=== PATIENT | male | born 1950 | race Caucasian/White ===

== ENCOUNTER 2021-08-09 11:52 | Inpatient (IN) | payer MEDICARE, OTHER ==
[~2021-08-09] VITALS: Ht 172.7 cm; Wt 125.0 kg
[~2021-08-09 11:52] MED LIST: AUGMENTIN 875-1 EACH PO
[2021-08-09 12:49] LABS: BASOPHIL 0.3 % (0-2); EOSINOPHIL 0.3 % (0-7); HCT 43.6 % (42.0-52.0); HGB 15.5 g/dl (13.2-18.0); LYMPHOCYTE 10.1 % (15-48); MCH 33.4 pg (25.0-31.0); MCHC 35.6 g/dL (32.0-36.0); MPV 9.6 fL (6.0-9.5); PLT 207 K/uL (150-400); RBC 4.64 M/uL (4.70-6.00); RDW 12.6 % (11.5-14.0); WBC 3.1 K/uL (4.0-10.5)
[2021-08-09 12:56] LABS: INR 1.16 (0.9-1.2); PROTHROMBIN TIME 14.2 SECONDS (11.8-13.4); PTT 32.2 SECONDS (24.4-34.7)
[2021-08-09 13:09] LABS: ALBUMIN 3.9 g/dL (3.4-5.0); BILIRUBIN - TOTAL 2.2 mg/dL (0.2-1.0); BUN/CREAT RATIO (CALC) 23.3 RATIO; CREATININE 1.16 mg/dL (0.67-1.17); GLOBULIN (CALCULATION) 3.5 g/dL; MAGNESIUM 1.7 mg/dL (1.8-2.4); POTASSIUM 3.1 mmol/L (3.5-5.1); TOTAL PROTEIN 7.4 g/dL (6.4-8.2)
[2021-08-09 13:13] LABS: LACTIC ACID 3.4 mmol/L (0.4-1.9)
[2021-08-09 13:27] LABS: BAND 15 % (0-10); LYMPHOCYTE(M) 14 % (15-48); METAMYELOCYTE 1; MONOCYTE(M) 2 % (0-12); NEUTROPHILS(M) 67 % (41-80); NRBC 0; PLATELET ESTIMATE NORMAL; PLATELET MORPHOLOGY NORMAL; TOTAL CELL COUNT 100; VARIANT LYMPHOCYTE 1
[2021-08-09 14:24] LABS: BILIRUBIN NEGATIVE (NEGATIVE); BLOOD 2+ Ery/uL (NEGATIVE); CLARITY HAZY (CLEAR); COLOR RED (YELLOW); GLUCOSE (U) NORMAL (NORMAL); LEUKOCYTES TRACE Leu/uL (NEGATIVE); NITRITE NEGATIVE (NEGATIVE); PROTEIN NEGATIVE (NEGATIVE); SPECIFIC GRAVITY <=1.005 (1.001-1.030); UROBILINOGEN 0.2 mg/dL (0.2-1.0)
[2021-08-09 14:28] LABS: BACTERIA TRACE; URINARY RBC TNTC
--- NOTE | 2021-08-09 16:59 | NUR ---
RECEIVED FROM ER VIA STRETCHER. ORIENTED TO ROOM ASSESSMENT COMPLETED
[2021-08-09] MEDS ORDERED: MELOXICAM15 MG PO (17:09)
[2021-08-09] MEDS ORDERED: TOPROL XL 50 MG50 MG PO (17:12)
[2021-08-09] MEDS ORDERED: LISINOPRIL-HCTZ PO (17:12)
[2021-08-09] MEDS ORDERED: NORVASC5 MG PO (17:12)
[2021-08-09] MEDS ORDERED: VASCULERA630 MG PO (17:13)
[2021-08-09] MEDS ORDERED: ASPIRIN325 MG PO (17:14)
[2021-08-10 06:15] LABS: BASOPHIL 0.3 % (0-2); EOSINOPHIL 0.1 % (0-7); HCT 39.4 % (42.0-52.0); HGB 13.9 g/dl (13.2-18.0); LYMPHOCYTE 2.7 % (15-48); MCHC 35.3 g/dL (32.0-36.0); MCV 96.3 fL (78.0-100.0); MONOCYTE 1.7 % (0-12); MPV 9.9 fL (6.0-9.5); NRBC 0; PLT 165 K/uL (150-400); RBC 4.09 M/uL (4.70-6.00); RDW 13.2 % (11.5-14.0)
[2021-08-10 06:30] LABS: NEUTROPHIL 94.2 % (41-80); WBC 12.6 K/uL (4.0-10.5)
[2021-08-10 06:45] LABS: BUN/CREAT RATIO (CALC) 22.3 RATIO; CREATININE 1.21 mg/dL (0.67-1.17); FT4 (FREE T4) 1.2 ng/dL (0.76-1.46); MAGNESIUM 2.1 mg/dL (1.8-2.4); POTASSIUM 3.7 mmol/L (3.5-5.1)
[2021-08-11 06:09] LABS: BASOPHIL 0.3 % (0-2); EOSINOPHIL 0.3 % (0-7); HCT 39.1 % (42.0-52.0); HGB 13.8 g/dl (13.2-18.0); LYMPHOCYTE 5.1 % (15-48); MCH 33.6 pg (25.0-31.0); MCHC 35.3 g/dL (32.0-36.0); MCV 95.1 fL (78.0-100.0); MONOCYTE 3.7 % (0-12); MPV 9.7 fL (6.0-9.5); NEUTROPHIL 89.9 % (41-80); NRBC 0; PLT 147 K/uL (150-400); RBC 4.11 M/uL (4.70-6.00); RDW 12.7 % (11.5-14.0); WBC 10.5 K/uL (4.0-10.5)
[2021-08-11 06:36] LABS: BILIRUBIN - TOTAL 1.4 mg/dL (0.2-1.0); BUN/CREAT RATIO (CALC) 20.2 RATIO; CREATININE 1.04 mg/dL (0.67-1.17); GLOBULIN (CALCULATION) 2.7 g/dL; POTASSIUM 3.7 mmol/L (3.5-5.1); TOTAL PROTEIN 5.7 g/dL (6.4-8.2)
[2021-08-12 07:33] LABS: BASOPHIL 0.4 % (0-2); EOSINOPHIL 1.9 % (0-7); HCT 39.7 % (42.0-52.0); HGB 13.9 g/dl (13.2-18.0); LYMPHOCYTE 10.1 % (15-48); MCH 32.9 pg (25.0-31.0); MCV 93.9 fL (78.0-100.0); MONOCYTE 7.5 % (0-12); MPV 9.3 fL (6.0-9.5); NEUTROPHIL 79.4 % (41-80); NRBC 0; PLT 147 K/uL (150-400); RBC 4.23 M/uL (4.70-6.00); RDW 12.5 % (11.5-14.0)
[2021-08-12 07:49] LABS: BUN/CREAT RATIO (CALC) 16.8 RATIO; CREATININE 1.01 mg/dL (0.67-1.17); POTASSIUM 3.7 mmol/L (3.5-5.1)
[2021-08-14] MEDS ORDERED: BACTRIM DS TAB1 EACH PO (09:35)
[2021-08-14] MEDS ORDERED: TOPROL XL100 MG PO (16:41)
[2021-08-14] MEDS ORDERED: ELIQUIS5 MG PO (16:41)
== END 2021-08-14 11:27 | disposition home or self-care (01) | DRG 862 ==
LOC: FER 11:52 → FICU 15:02 → FTCU 08-10 13:59
PROVIDERS: Emergency Medicine; ADMIT Internal Medicine
PROC: B24BYZZ Ultrasonography of Heart with Aorta using Other Contrast (ICD-10-PCS; principal; 2021-08-10)
PROC: 3E03329 Introduction of Other Anti-infective into Peripheral Vein, Percutaneous Approach (ICD-10-PCS; 2021-08-10)
DX: T81.40XA Infection following a procedure, unspecified, initial encounter (principal); A41.51 Sepsis due to Escherichia coli [E. coli]; N41.0 Acute prostatitis; Z68.41 Body mass index [BMI] 40.0-44.9, adult; Z16.12 Extended spectrum beta lactamase (ESBL) resistance; T81.44XA Sepsis following a procedure, initial encounter; C61 Malignant neoplasm of prostate; I48.0 Paroxysmal atrial fibrillation; I10 Essential (primary) hypertension; G47.30 Sleep apnea, unspecified; E66.01 Morbid (severe) obesity due to excess calories; Z20.822 Contact with and (suspected) exposure to COVID-19; N40.0 Benign prostatic hyperplasia without lower urinary tract symptoms; I45.10 Unspecified right bundle-branch block; M19.90 Unspecified osteoarthritis, unspecified site; E83.42 Hypomagnesemia; T50.2X5A Adverse effect of carbonic-anhydrase inhibitors, benzothiadiazides and other diuretics, initial encounter; E87.6 Hypokalemia; Z90.49 Acquired absence of other specified parts of digestive tract; Z96.651 Presence of right artificial knee joint; Z98.890 Other specified postprocedural states; Z87.891 Personal history of nicotine dependence; Z79.82 Long term (current) use of aspirin; Z79.899 Other long term (current) drug therapy; Z98.41 Cataract extraction status, right eye; Z98.42 Cataract extraction status, left eye; Z85.828 Personal history of other malignant neoplasm of skin
CPT/HCPCS: 36415; 36600; 71045; 71275; 80048; 80053; 81001; 82803; 83605; 83735; 83880; 84145; 84439; 84443; 84484; 85025; 85610; 85730; 87040; 87077; 87088; 87186; 93005; 94640; J1650; J2185; J2543; J3370; J3475; J7030; J7040; J7050; U0002